=== PATIENT | female | born 1990 | race Caucasian/White ===

== ENCOUNTER 2018-10-18 12:39 | Emergency (ER) | payer OTHER ==
[~2018-10-18] VITALS: Ht 157.5 cm; Wt 72.4 kg
[~2018-10-18 12:39] MED LIST: ACET325T33 PO; BUTA1CAP38 PO; CEPH-443 PO; CEPH500C PO; CYCL10TA7 PO; FIORINAL PO; HYDR-3498 PO; IBUP-1542 PO; IBUP800T48 PO; LORA-441 PO; ONDA4TAB35 PO; SUMA100T4 PO; SUMA25TA34 PO; TRAM50TA2 PO
[2018-10-18 12:56] VITALS: Ht 157.5 cm; Wt 72.4 kg
--- NOTE | 2018-10-18 12:58 | EN ---
Date/Time of Note Date/Time of Note DATE: 10/18/18 TIME: 12:57 ER Progress Note 28-year-old female is here with lower abdominal pelvic crampy pain for 1 week. Abdominal labs ordered and patient will await room in ED2 ELI MCFADDEN PA-C Oct 18, 2018 12:58
[2018-10-18] MEDS ORDERED: SOD CHLORIDE 0.9% 1,000 ML IV STA (13:56)
[2018-10-18] MEDS ORDERED: morphine 4 MG/ML VIAL IV STA (13:56)
[2018-10-18] MEDS ORDERED: ONDANSETRON 4 MG INJ IV STA (13:59)
--- NOTE | 2018-10-18 14:07 | ERD ---
ER Documentation Chief Complaint Chief Complaint pelvic cramping X 1 wk HPI 28-year-old female presents with complaint of bilateral lower quadrant abdominal pain for the past week. States the pain is gotten more intense this time goes on. She states she has been unable to walk up the stairs to her apartment due to the pain. Patient denies any nausea, vomiting, diarrhea, flank pain, hematuria, dysuria, fevers, chills. ROS All systems reviewed and are negative except as per history of present illness. Medications Home Meds Active Scripts Ibuprofen* (Motrin*) 600 Mg Tab, 600 MG PO Q6, #30 TAB Prov:DAYNE WIGGINS 10/18/18 Cephalexin* (Keflex*) 500 Mg Capsule, 500 MG PO QID for 7 Days, CAP Prov:DAYNE WIGGINS 10/18/18 Ondansetron Hcl* (Zofran* ODT) 4 mg -ODT Tab.disper, 4 MG PO Q6 PRN for NAUSEA AND/OR VOMITING, #10 TAB Prov:PHI DURAN 01/17/15 Hydrocodone Bit-Acetaminophen* ([place]*) 5-325 Mg Tab, 1 TAB PO Q4H PRN for PAIN for 7 Days, TAB Prov:PHI DURAN 01/17/15 Ondansetron Hcl* (Zofran* ODT) 4 mg -ODT Tab.disper, 4 MG PO Q6 PRN for NAUSEA AND/OR VOMITING, #5 TAB Prov:TERRANCE COY 01/03/15 Tramadol HCl (Tramadol HCl) 50 Mg Tab, 50 MG PO Q6 PRN for PAIN, #10 TAB Prov:TERRANCE COY. 01/03/15 Sumatriptan Succinate* (Sumatriptan Succinate*) 100 Mg Tablet, 100 MG PO BID PRN for migraine headache for 30 Days, TAB May repeat after 2 hours if needed; MAX 200 mg/24 hours Prov:PHI DURAN 11/20/14 Cyclobenzaprine Hcl* (Cyclobenzaprine Hcl*) 10 Mg Tablet, 10 MG PO TID, #15 TAB Prov:PHI DURAN 11/20/14 Hydrocodone Bit-Acetaminophen* ([place]*) 5-325 Mg Tab, 1 TAB PO Q6 PRN for PAIN, #20 TAB Prov:PHI DURAN 11/20/14 Hydrocodone Bit-Acetaminophen* ([place]*) 5-325 Mg Tab, 1 TAB PO Q6 PRN for PAIN, #5 TAB Prov:NORMAN MARIO DO 09/22/14 Ibuprofen* (Motrin*) 800 Mg Tab, 800 MG PO Q6, #20 TAB Prov:NORMAN MARIO DO 09/22/14 Lorazepam* (Ativan*) 0.5 Mg Tablet, 0.5 MG PO Q8H PRN for ANXIETY, #10 TAB Prov:MADELINE CORTEZ PA-C 09/02/14 Acetaminophen* (Tylenol*) 325 Mg Tablet, 2 TAB PO Q8 PRN for PAIN AND OR ELEVATED TEMP, #20 TAB Prov:MADELINE CORTEZ PA-C 09/02/14 Hydrocodone Bit-Acetaminophen* ([place]*) 5-325 Mg Tab, 1 TAB PO Q6 PRN for PAIN, #15 TAB Prov:MADELINE CORTEZ PA-C 09/02/14 Reported Medications Sumatriptan Succinate* (Imitrex*) 25 Mg Tablet, 25 MG PO BID PRN for HEADACHE, TAB May repeat after 2 hours if needed; MAX 200 mg/24 hours 08/04/14 Cephalexin* (Cephalexin*) 500 Mg Capsule, 500 MG PO TID, CAP 08/04/14 Allergies Allergies: Coded Allergies: ciprofloxacin HCl (Verified Allergy, Unknown, 01/02/15) ketorolac (Verified Adverse Reaction, Unknown, ANXIETY, 01/02/15) PMhx/Soc History of Surgery: No Anesthesia Reaction: No Hx Neurological Disorder: Yes (headaches/migraine) Hx Respiratory Disorders: No Hx Cardiac Disorders: No Hx Psychiatric Problems: No Hx Miscellaneous Medical Probl: No Hx Alcohol Use: No Hx Substance Use: No Hx Tobacco Use: No FmHx Family History: No diabetes, No coronary disease, No other Physical Exam Vitals Vital Signs Date Temp Pulse Resp B/P (MAP) Pulse Ox O2 O2 Flow FiO2 Time Delivery Rate 10/18/18 98.0 88 17 126/83 99 Room Air 16:24 (97) 10/18/18 99.2 76 18 170/88 100 12:56 (115) Physical Exam Const: No acute distress Head: Atraumatic Eyes: Normal Conjunctiva ENT: Normal External Ears, Nose and Mouth. Neck: Full range of motion. No meningismus. Resp: Clear to auscultation bilaterally Cardio: Regular rate and rhythm, no murmurs Abd: Positive McBurney's. Positive Rovsing's. Unable to jump up and down. Skin: No petechiae or rashes Back: No midline or flank tenderness Ext: No cyanosis, or edema Neur: Awake and alert Psych: Normal Mood and Affect Result Diagram: 10/18/18 1323 10/18/18 1323 Results 24 hrs Laboratory Tests Test 10/18/18 13:23 10/18/18 14:20 White Blood Count 10.3 10^3/ul Red Blood Count 4.92 10^6/ul Hemoglobin 13.5 g/dl Hematocrit 41.7 % Mean Corpuscular Volume 84.8 fl Mean Corpuscular Hemoglobin 27.4 pg Mean Corpuscular Hemoglobin Concent 32.4 g/dl Red Cell Distribution Width 13.6 % Platelet Count 353 10^3/UL Mean Platelet Volume 9.2 fl Immature Granulocytes % 0.600 % Neutrophils % 63.5 % Lymphocytes % 27.3 % Monocytes % 7.4 % Eosinophils % 0.8 % Basophils % 0.4 % Nucleated Red Blood Cells % 0.0 /100WBC Immature Granulocytes # 0.060 10^3/ul Neutrophils # 6.5 10^3/ul Lymphocytes # 2.8 10^3/ul Monocytes # 0.8 10^3/ul Eosinophils # 0.1 10^3/ul Basophils # 0.0 10^3/ul Nucleated Red Blood Cells # 0.0 10^3/ul Urine Color YELLOW Urine Clarity CLOUDY Urine pH 5.0 Urine Specific [place] 1.020 Urine Ketones NEGATIVE mg/dL Urine Nitrite NEGATIVE mg/dL Urine Bilirubin NEGATIVE mg/dL Urine Urobilinogen NEGATIVE mg/dL Urine Leukocyte Esterase 3+ [place]/ul Urine Microscopic RBC 4 /HPF Urine Microscopic WBC 30 /HPF Urine Squamous Epithelial Cells FEW /HPF Urine Bacteria FEW /HPF Urine Mucus FEW /HPF Urine Hemoglobin 1+ mg/dL Urine Glucose NEGATIVE mg/dL Urine Total Protein NEGATIVE mg/dl Sodium Level 142 mmol/L Potassium Level 4.4 mmol/L Chloride Level 106 mmol/L Carbon Dioxide Level 25 mmol/L Anion Gap 11 Blood Urea Nitrogen 5 mg/dl Creatinine 0.58 mg/dl Est Glomerular Filtrat Rate mL/min > 60 mL/min Glucose Level 82 mg/dl Calcium Level 9.7 mg/dl Total Bilirubin 0.3 mg/dl Direct Bilirubin 0.00 mg/dl Indirect Bilirubin 0.3 mg/dl Aspartate Amino Transf (AST/SGOT) 20 IU/L Alanine Aminotransferase (ALT/SGPT) 29 IU/L Alkaline Phosphatase 116 IU/L Total Protein 8.1 g/dl Albumin 4.7 g/dl Globulin 3.40 g/dl Albumin/Globulin Ratio 1.38 Lipase 99 U/L POC Beta HCG, Qualitative NEGATIVE Current Medications Medications Dose Sig/Rahel Start Time Status Last (Trade) Ordered Route PRN Stop Time Admin Dose Reason Admin Sodium 1,000 ml @ Q1H STAT 10/18/18 DC 10/18/18 Chloride 1,000 mls/hr IV 13:56 10/18/18 14:15 14:55 Morphine 4 mg ONCE STAT 10/18/18 DC 10/18/18 Sulfate IV 13:56 10/18/18 14:15 (morphine) 13:59 Ondansetron 2 mg ONCE STAT 10/18/18 DC 10/18/18 HCl (Zofran IV 13:59 10/18/18 14:15 Inj) 14:00 Sodium 100 ml @ ud STK-MED 10/18/18 DC 10/18/18 Chloride ONCE .ROUTE 14:13 10/18/18 14:59 14:14 Iohexol 150 ml STK-MED 10/18/18 DC 10/18/18 (Omnipaque ONCE .ROUTE 14:13 10/18/18 15:00 300mg/ ml) 14:14 Ceftriaxone 50 ml @ ONCE ONCE 10/18/18 DC 10/18/18 Sodium 100 mls/hr IVPB 16:00 10/18/18 15:53 16:29 Procedures/MDM DIAGNOSTIC IMAGING REPORT Patient: ALONSO BRICENO : 1990 Age: 28 Sex: F MR #: [id number] DOS: 10/18/18 1356 Ordering MD: DAYNE WIGGINS Location: [facility] Room/Bed: PROCEDURE: CT Abdomen and Pelvis with contrast. CLINICAL INDICATION: Abdominal pain. TECHNIQUE: CT scan of the abdomen and pelvis with contrast was performed on a multi-detector high-resolution CT scanner. The patient was scanned following the uncomplicated intravenous administration of 90 cc of Omnipaque 300 IV contrast. Coronal and sagittal reformatted images were obtained from the axial source images. DICOM images are available. CTDI equals 11.27 mGy, and DLP equals 635.8 mGy-cm. One or more of the following dose reduction techniques were used: - Automated exposure control. - Adjustment of the mA and/or kV according to patient size. - Use of iterative reconstruction technique. COMPARISON: CT 05/04/2014; CT 03/05/2014 FINDINGS: Lower thorax: Normal. Liver: Normal. Patent portal vein. Biliary: Status post cholecystectomy. No biliary dilatation. Pancreas: Normal. Spleen: Normal. Adrenal Glands: Normal. Genitourinary: Symmetric perfusion of kidneys with no hydronephrosis. Bladder is unremarkable. Gastrointestinal: Stomach is decompressed. Small and large bowel with normal caliber. Normal appendix. Lymph nodes: Normal. Vascular: Normal. Peritoneum/mesentery: No free fluid or free air. Reproductive organs: Normal. Musculoskeletal: Normal. Abdominal wall: Small fat containing umbilical hernia and mid abdominal ventral hernia. IMPRESSION: 1. No mass, adenopathy, or acute inflammatory process. 2. Chronic findings as discussed above. RPTAT: QQ Physician Omer Date Time Electronically viewed and signed by Physician Omer on 10/18/2018 15:16 rV/ CC: DAYNE WIGGINS [id number] DIAGNOSTIC IMAGING REPORT Patient: ALONSO BRICENO : 1990 Age: 28 Sex: F MR #: [id number] DOS: 10/18/18 1356 Ordering MD: DAYNE WIGGINS Location: [facility] Room/Bed: PROCEDURE: US Pelvis CLINICAL INDICATION: Diffuse pelvic pain. TECHNIQUE: Transabdominal and transvaginal sonographic evaluation of the pelvis was performed. COMPARISON: US PELVIS 08/04/2014 FINDINGS: MEASUREMENTS: Uterus: 7.5 x 4.1 x 5.4 cm, anteverted. Endometrium: 15.9 mm. Right ovary size: 2.2 x 1.9 x 1.5 cm. Left ovary not visualized. Myometrium is heterogeneous in echotexture without fibroids. Endometrium is normal in thickness without a focal abnormality. Right ovary is visualized and demonstrates Doppler flow. There are a few follicular cysts present. Left ovary was not visualized. No adnexal masses identified. No free pelvic fluid. IMPRESSION: 1. Moderately thickened endometrial canal complex. This may be due to the secretory phase of the menstrual cycle. RPTAT: AACC Physician Agustina Date Time Electronically viewed and signed by Physician Agustina on 10/18/2018 14:44 JH/ CC: DAYNE WIGGINS [id number] MDM: Given patient's acute abdominal pain on exam, notably the positive McBurney's and Rovsing sign, there was concern for possible appendicitis theref ore CT pelvis with contrast was ordered. Pelvic ultrasound was also ordered. Both results were within normal limits. UA did show UTI so patient will be treated with 1 g of ceftriaxone in the ER and discharged with Rx for Keflex. Patient did not have any fevers or CVA tenderness so I do not think that she has pyelonephritis. I have low suspicion for acute coronary syndrome, AAA, mesenteric ischemia, lower lobe pneumonia, DKA, bowel perforation, cholecystitis, choledocholithiasis, ascending cholangitis, hepatic abscess, pancreatitis, PUD, splenic rupture, diverticulitis, pyelonephritis, nephrolithiasis, appendicitis, , ectopic , PID, ovarian torsion or tubo-ovarian abscess At this time, patient is stable for discharge and outpatient management. I have instructed the patient to follow-up with his/her primary care physician in 1 day. I have discussed with the patient the possibility of needing to see a specialist for further workup and imaging studies if symptoms persist. I have instructed the patient to promptly return to the ER for any new or worsening symptoms including but not limited to increased pain, fever, nausea, vomiting, weakness or LOC. The patient and/or family expressed understanding of and agreement with this plan. All questions were answered. Home care instructions were provided. DISCLAIMER: Inadvertent spelling and grammatical errors are likely due to EHR/dictation software use and do not reflect on the overall quality of patient care. Also, please note that the electronic time recorded on this note does not necessarily reflect the actual time of the patient encounter. . Departure Diagnosis: Primary Impression: UTI (urinary tract infection) Additional Impression: Acute pain in female pelvis Condition: Stable DAYNE WIGGINS Oct 18, 2018 14:07
[2018-10-18] MEDS ORDERED: SOD CHLORIDE 0.9% 100 ML ONE (14:13)
[2018-10-18] MEDS ORDERED: IOHEXOL 300MG/ML 150 ML BTL ONE (14:13)
[2018-10-18] MEDS ORDERED: CEFTRIAXONE 1 GM/50 ML (PMX) 50 ML IVPB ONE (16:00)
[2018-10-18 16:24] VITALS: BP 126/83; PULSE 88; RESP 17
== END 2018-10-18 16:26 | disposition home or self-care (01) ==
LOC: FTE 12:39
DX: N39.0 Urinary tract infection, site not specified (principal)
CPT/HCPCS: 36415; 74177; 76830; 76856; 80053; 81001; 81025; 83690; 85025; 87086; 96361; 96365; 96375; J0696; J2270; J2405; J7030; Q9967; Z7502; Z7610

== ENCOUNTER 2018-11-10 16:59 | Emergency (ER) | payer OTHER ==
[~2018-11-10] VITALS: Ht 157.5 cm; Wt 73.8 kg
[2018-11-10 17:08] VITALS: Ht 157.5 cm; Wt 73.8 kg
[2018-11-10] MEDS ORDERED: DIPHENHYDRAMINE 50 MG INJ IV STA (17:30)
[2018-11-10] MEDS ORDERED: ONDANSETRON 4 MG INJ IV STA (17:30)
[2018-11-10] MEDS ORDERED: SOD CHLORIDE 0.9% 1,000 ML IV STA (17:30)
[2018-11-10] MEDS ORDERED: ACETAMINOPHEN 325 MG TAB PO ONE (17:30)
[2018-11-10 19:00] VITALS: BP 120/81; PULSE 80; RESP 18
== END 2018-11-10 19:00 | disposition home or self-care (01) ==
LOC: FTE 16:59
DX: R51 Headache (principal)
CPT/HCPCS: 36415; 80048; 81001; 81025; 85025; 85610; 85730; 96361; 96374; 96375; J1200; J2405; J7030; Z7502; Z7610

== ENCOUNTER 2018-12-24 10:03 | Emergency (ER) | payer OTHER ==
[~2018-12-24] VITALS: Ht 160 cm; Wt 74.6 kg
[~2018-12-24 10:03] MED LIST changes: +BEN25 PO
[2018-12-24 10:04] VITALS: BP 131/83; PULSE 91; RESP 18; Ht 160 cm; Wt 74.6 kg
[2018-12-24] MEDS ORDERED: FAMOTIDINE 20 MG INJ IV STA (10:42)
[2018-12-24] MEDS ORDERED: SOD CHLORIDE 0.9% 1,000 ML IV STA (10:42)
[2018-12-24] MEDS ORDERED: DIPHENHYDRAMINE 50 MG INJ IV ONE (11:00)
[2018-12-24] MEDS ORDERED: ACETAMINOPHEN 325 MG TAB PO ONE (12:00)
[2018-12-24] MEDS ORDERED: DEXAMETHASONE 10 MG/ML 1 ML INJ IV ONE (12:00)
== END 2018-12-24 12:19 | disposition home or self-care (01) ==
LOC: FTE 10:03
DX: L30.9 Dermatitis, unspecified (principal); Z79.82 Long term (current) use of aspirin
CPT/HCPCS: 80053; 81001; 81025; 85025; J1100; J1200; J7030; Z7610; 36415; 96374; 96375